=== PATIENT | female | born 1975 | race Caucasian/White ===

== ENCOUNTER 2022-06-03 00:45 | Emergency (ER) | payer MEDICAID ==
[~2022-06-03] VITALS: Ht 175.3 cm; Wt 95.3 kg
[2022-06-03 01:32] VITALS: BP 137/92
--- NOTE | 2022-06-03 01:41 | NUR ---
TO LOBBY FOLLOWING TRIAGE. UA OBTAINED
[2022-06-03 01:58] LABS: BASOPHILS # (AUTO) 0.2 K/uL (0.00-0.22); BASOPHILS % (AUTO) 1.7 % (0.0-2.0); EOSINOPHILS # (AUTO) 0.5 K/uL (0-0.4); EOSINOPHILS % (AUTO) 5.7 % (0.0-4.0); HEMATOCRIT 29.2 % (36-48); HEMOGLOBIN 9.4 g/dL (12.0-16.0); LYMPHOCYTES # (AUTO) 1.9 K/uL (2.5-16.5); LYMPHOCYTES % (AUTO) 21.1 % (20.5-51.1); MEAN CORPUSCULAR HEMOGLOBIN 25 pg (27-31); MEAN CORPUSCULAR HGB CONC 32 g/dL (33-37); MEAN CORPUSCULAR VOLUME 77.1 fL (80-94); MONOCYTES # (AUTO) 0.7 K/uL (0.8-1.0); MONOCYTES % (AUTO) 7.7 % (1.7-9.3); NEUTROPHILS # (AUTO) 5.7 K/uL (1.8-7.7); NEUTROPHILS % (AUTO) 63.8 % (42.2-75.2); PLATELET COUNT (AUTO) 285 K/uL (140-450); RED BLOOD CELL COUNT(AUTO) 3.78 MIL/uL (4.20-5.40); RED CELL DISTRIBUTION WIDTH 16.8 % (11.6-13.7)
[2022-06-03 02:17] LABS: ALBUMIN 3.3 g/dL (3.4-5.0); ANION GAP 11.6 (8-16); CARBON DIOXIDE 28.8 mmol/L (21-32); CREATININE 0.9 mg/dL (0.6-1.3); POTASSIUM 3.4 mmol/L (3.5-5.1); TOTAL BILIRUBIN 0.1 mg/dL (0.0-1.0)
--- NOTE | 2022-06-03 02:52 | NUR ---
RETURNED TO LOBBY FROM US
[2022-06-03 04:00] LABS: APPEARANCE,URINE CLEAR (CLEAR); COLOR,URINE YELLOW (YELLOW)
[2022-06-03 04:01] LABS: UGLUCOSE NEGATIVE (NEGATIVE)
[2022-06-03 04:02] LABS: BILIRUBIN,URINE NEGATIVE (NEGATIVE); BLOOD, URINE 2+ (NEGATIVE); LEUKOCYTE ESTERASE ,URINE NEGATIVE (NEGATIVE); NITRITE, URINE NEGATIVE (NEGATIVE); RBC,URINE >100 /HPF (0-5); WBC,URINE >25 (MANY) /HPF (0-5)
[2022-06-03 04:03] LABS: YEAST,URINE None Seen /HPF (None Seen)
--- NOTE | 2022-06-03 07:00 | NUR ---
PATIENT ELOPED FROM FACILITY. DISCHARGE INSTRUCTIONS NOT GIVEN TO PATIENT. DR. GO NOTIFIED.
[2022-06-04] MEDS ORDERED: MEDR10TA PO (04:45)
== END 2022-06-03 07:00 | disposition left against medical advice (07) ==
LOC: MED 00:45
DX: O20.8 Other hemorrhage in early pregnancy (principal); O34.81 Maternal care for other abnormalities of pelvic organs, first trimester; O23.41 Unspecified infection of urinary tract in pregnancy, first trimester; D49.59 Neoplasm of unspecified behavior of other genitourinary organ; N39.0 Urinary tract infection, site not specified; Z3A.01 Less than 8 weeks gestation of pregnancy
CPT/HCPCS: 36415; 76830; 80053; 81001; 84702; 85025; 86900; 86901; 87086; 99284; Q0092

== ENCOUNTER 2022-06-05 12:51 | Emergency (ER) | payer MEDICAID ==
[~2022-06-05 12:51] MED LIST: MEDR10TA PO
--- NOTE | 2022-06-05 13:02 | NUR ---
PT ATTEMPTED TO CALL TO TRIAGE NO RESPONSE
--- NOTE | 2022-06-05 13:10 | NUR ---
ATTEMPTED TO CALL NO RESPONSE
--- NOTE | 2022-06-05 13:31 | NUR ---
PATIENT LEFT WITHOUT BEING SEEN BY DR. HASSAN. NO FURTHER CARE PROVIDED FOR PATIENT.
--- NOTE | 2022-06-05 13:31 | NUR ---
ATTEMPTED TO CALL NO RESPONSE
== END 2022-06-05 13:31 | disposition left against medical advice (07) ==
LOC: MED 12:51
DX: R79.9 Abnormal finding of blood chemistry, unspecified (principal); Z53.21 Procedure and treatment not carried out due to patient leaving prior to being seen by health care provider

== ENCOUNTER 2022-06-12 08:12 | Emergency (ER) | payer MEDICAID ==
--- NOTE | 2022-06-12 08:45 | NUR ---
CALLEDX1. NO SHOW Addendum: 06/12/22 at 0945 by [email or web address] Amendment undone in EDM - 06/12/22 at 945 by [email or web address] PATIENT LEFT WITHOUT BEING SEEN BY []. NO FURTHER CARE PROVIDED FOR PATIENT. Addendum: 06/12/22 at 945 by [email or web address] PATIENT LEFT WITHOUT BEING SEEN BY DR. HAMMOND. NO FURTHER CARE PROVIDED FOR PATIENT.
--- NOTE | 2022-06-12 09:06 | NUR ---
CALLEDX2. NO SHOW
--- NOTE | 2022-06-12 09:45 | NUR ---
CALLEDX3. NO SHOW.
== END 2022-06-12 08:45 | disposition left against medical advice (07) ==
LOC: MED 08:12
DX: R31.9 Hematuria, unspecified (principal); Z53.21 Procedure and treatment not carried out due to patient leaving prior to being seen by health care provider

== ENCOUNTER 2024-07-12 04:03 | Emergency (ER) | payer MEDICAID ==
[~2024-07-12] VITALS: Ht 175.3 cm; Wt 88.5 kg
[2024-07-12 04:08] VITALS: BP 130/82; PULSE 86; RESP 16; TEMP 98; O2SAT 99
[2024-07-12] MEDS: diphenhydrAMINE 50 MG CAP PO ONE (04:38)
[2024-07-12] MEDS: predniSONE 20 MG TAB PO ONE (04:43)
[2024-07-12] MEDS: diphenhydrAMINE 50 MG/ML VIAL IM ONE (04:44)
[2024-07-12] MEDS ORDERED: KETOROLAC 30 MG/ML VIAL ONE (04:45)
[2024-07-12] MEDS ORDERED: [UNRECOGNIZED DRUG - CODE] TP (05:09)
[2024-07-12] MEDS ORDERED: PRED20TA5 PO (05:09)
== END 2024-07-12 05:16 | disposition home or self-care (01) ==
LOC: MED 04:03
DX: L25.5 Unspecified contact dermatitis due to plants, except food (principal); I10 Essential (primary) hypertension; E78.00 Pure hypercholesterolemia, unspecified; Z79.899 Other long term (current) drug therapy
CPT/HCPCS: 96372; 99283; J1200; J1885; J7512; Q0163